=== PATIENT | female | born 1975 | race African-American/Black ===

== ENCOUNTER 2016-10-14 02:00 | Emergency (ER) | payer OTHER ==
[~2016-10-14] VITALS: Ht 175.3 cm; Wt 70.0 kg
[2016-10-14] MEDS ORDERED: KETOROLAC 30MG/ML VIAL IV STA (03:12)
[2016-10-14] MEDS ORDERED: ASPIRIN 81MG TABLET PO STA (03:12)
[2016-10-14 03:28] LABS: BASOPHILS % 0.8 % (0.0-2.0); EOSINOPHILS % 0.7 % (0.0-5.0); HEMOGLOBIN. 11.2 g/dL (12.0-16.0); LYMPHOCYTES % 37.4 % (20.0-50.0); MEAN CORPUSCULAR HEMOGLOBIN 28.1 pg (28.0-32.0); MEAN CORPUSCULAR HGB CONC 32.8 g/dL (31.0-37.0); MEAN CORPUSCULAR VOLUME 85.8 fL (81.0-99.0); MEAN PLATELET VOLUME 7.9 fl (7.4-10.4); MONOCYTES % 7.7 % (2.0-8.0); NEUTROPHILS % 53.4 % (40.0-76.0); PLATELET 162 x1000/uL (130-400); RED BLOOD CELL COUNT 3.97 mill/uL (4.2-5.4); RED CELL DISTRIBUTION WIDTH 15.4 % (11.6-14.6); WHITE BLOOD COUNT 8.3 x1000/uL (4.5-11.0)
[2016-10-14 03:33] LABS: PARTIAL THROMBOPLASTIN TIME 26.8 sec (24.0-34.0); PROTHROMBIN TIME 10.2 sec
[2016-10-14 03:36] LABS: HCG SCREEN NEGATIVE
[2016-10-14 03:41] VITALS: BP 110/86
[2016-10-14 03:43] LABS: ALANINE AMINOTRANSFERASE 9 IU/L (13-61); ALBUMIN 3.7 g/dL (3.4-5.0); ANION GAP 11; CALCIUM 9.4 mg/dL (8.5-10.1); CARBON DIOXIDE 27 mEq/L (21-32); CHLORIDE 107 mEq/L (98-107); INDEX HEMOLYSI 1 (1-3); INDEX ICTERIC 1 (1-4); INDEX LIPEMIC 1 (1-3); LIPASE 346 IU/L (73-393); TROPONIN I < 0.02 ng/mL (0.00-0.04); UREA NITROGEN BLOOD 12 mg/dL (7-21); eGFR > 60 mL/min (>60)
== END 2016-10-14 05:00 | disposition home or self-care (01) ==
LOC: ER 02:00
DX: R07.89 Other chest pain (principal); F12.10 Cannabis abuse, uncomplicated; F17.200 Nicotine dependence, unspecified, uncomplicated; R42 Dizziness and giddiness; K50.90 Crohn's disease, unspecified, without complications
CPT/HCPCS: 36415; 71010; 80053; 83690; 84484; 84703; 85025; 85610; 85730; 93005; 96374; 99285; J1885; Z7610

== ENCOUNTER 2016-10-16 09:54 | Emergency (ER) | payer OTHER ==
[~2016-10-16] VITALS: Ht 175.3 cm; Wt 69.0 kg
[2016-10-16] MEDS ORDERED: SODIUM CHLORIDE 0.9% 1,000 ML IV ONE (10:41)
[2016-10-16] MEDS ORDERED: ONDANSETRON HCL 4MG/2ML VIAL IV STA (10:41)
[2016-10-16] MEDS ORDERED: MORPHINE SULFATE 4 MG/ML CPJ (NOT FOR IM USE) IV STA (10:41)
[2016-10-16] MEDS ORDERED: ASPIRIN 81MG TABLET PO ONE (10:45)
[2016-10-16 10:56] LABS: EOSINOPHILS % 0.9 % (0.0-5.0); HEMATOCRIT. 35.7 % (36.0-48.0); HEMOGLOBIN. 11.9 g/dL (12.0-16.0); LYMPHOCYTES % 39.5 % (20.0-50.0); MEAN CORPUSCULAR HEMOGLOBIN 28.7 pg (28.0-32.0); MEAN CORPUSCULAR HGB CONC 33.5 g/dL (31.0-37.0); MEAN CORPUSCULAR VOLUME 85.7 fL (81.0-99.0); MEAN PLATELET VOLUME 7.7 fl (7.4-10.4); MONOCYTES % 9.1 % (2.0-8.0); NEUTROPHILS % 49.5 % (40.0-76.0); PLATELET 175 x1000/uL (130-400); RED BLOOD CELL COUNT 4.16 mill/uL (4.2-5.4); RED CELL DISTRIBUTION WIDTH 15.4 % (11.6-14.6); WHITE BLOOD COUNT 6.3 x1000/uL (4.5-11.0)
[2016-10-16 11:04] LABS: D-DIMER 1.83 mg/L FEU (<0.50); PROTHROMBIN TIME 10.8 sec
[2016-10-16 11:10] LABS: ALANINE AMINOTRANSFERASE 10 IU/L (13-61); ALBUMIN 3.5 g/dL (3.4-5.0); ANION GAP 10; CALCIUM 9.1 mg/dL (8.5-10.1); CARBON DIOXIDE 25 mEq/L (21-32); CHLORIDE 110 mEq/L (98-107); INDEX HEMOLYSI 1 (1-3); INDEX ICTERIC 1 (1-4); INDEX LIPEMIC 1 (1-3); NT PRO B-TYPE NATRIURETIC PEP 84 pg/mL (5-125); TROPONIN I < 0.02 ng/mL (0.00-0.04); UREA NITROGEN BLOOD 8 mg/dL (7-21); eGFR > 60 mL/min (>60)
[2016-10-16 12:53] VITALS: BP 122/85
== END 2016-10-16 15:09 | disposition home or self-care (01) ==
LOC: ER 12:09
DX: R07.89 Other chest pain (principal); R09.1 Pleurisy; F12.10 Cannabis abuse, uncomplicated; Z91.041 Radiographic dye allergy status
CPT/HCPCS: 36415; 71010; 78582; 80053; 83880; 84484; 84702; 85025; 85379; 85610; 93005; 96361; 96374; 96375; 99285; A9540; A9558; J2270; J2405; J7030; Z7610

== ENCOUNTER 2018-02-15 01:58 | Emergency (ER) | payer OTHER ==
[~2018-02-15] VITALS: Ht 175.3 cm; Wt 63.5 kg
[2018-02-15 02:09] VITALS: BP 129/89
== END 2018-02-15 04:18 | disposition home or self-care (01) ==
LOC: ER 01:58
DX: M79.641 Pain in right hand (principal); D64.9 Anemia, unspecified; G89.29 Other chronic pain; R10.2 Pelvic and perineal pain; F12.10 Cannabis abuse, uncomplicated; F17.200 Nicotine dependence, unspecified, uncomplicated; Z98.890 Other specified postprocedural states; Z87.828 Personal history of other (healed) physical injury and trauma; Z91.041 Radiographic dye allergy status
CPT/HCPCS: 73090; 73130; 99284